=== PATIENT | male | born 1945 | race Caucasian/White ===

== ENCOUNTER → 2020-10-04 16:28 | Outpatient (CLI) | payer MEDICARE, OTHER, SELFPAY ==
[2020-10-04 15:28] VITALS: BMI 22.8
[2020-10-04 18:04] LABS: Anion Gap 6 (5-15); BUN 16 mg/dL (7-18); Calcium,Total 8.7 mg/dL (8.5-10.1); Chloride 94 mmol/L (98-107); Creatinine, Serum 0.55 mg/dL (0.70-1.30); EST Glomerular Filtration Rate 153 mL/min (>60); Est Glom Filt Rate - Afr Amer 185 mL/min (>60); Glucose 95 mg/dL (74-106); Potassium 3.7 mmol/L (3.5-5.1); Sodium Level 131 mmol/L (136-145); Thyroid Stim Hormone (TSH) 3.58 uIU/mL (0.358-3.74)
== END ==
PROVIDERS: PCP Family Medicine; Visit Provider Internal Medicine Cardiovascular Disease
DX: I11.0 Hypertensive heart disease with heart failure (principal); I50.9 Heart failure, unspecified
CPT/HCPCS: 36415; 80048; 84443

== ENCOUNTER → 2020-10-10 14:46 | Outpatient (CLI) | payer MEDICARE, OTHER, SELFPAY ==
[2020-10-04 15:28] VITALS: BMI 22.8
--- NOTE | 2020-10-10 14:49 | ECHOD_ITS ---
Reason For Study: DYSPNEA/SOB Procedure This was a 2D Doppler, Color Flow transthoracic echocardiogram. Exam performed in department. Left Ventricle Normal LV size. Left ventricular systolic function is normal. The estimated ejection fraction is 55 %. No regional wall motion abnormalities noted. Right Ventricle Normal RV size. Normal systolic function. Atria Normal left atrium. Normal right atrium. Mitral Valve Normal mitral valve. Tricuspid Valve Normal tricuspid valve. Aortic Valve Normal aortic valve. Trisinus/trileaflet aortic valve. Pulmonic Valve Normal pulmonic valve. Great Vessels Normal aortic root. The pulmonary artery is normal size. Normal inferior vena cava. Pericardium/Pleural Small pericardial effusion. There are no echocardiographic indications of cardiac tamponade. MMode/2D Measurements & Calculations LVIDd: 4.9 cm IVSd: 0.88 cm Ao root diam: 3.2 cm LVIDs: 3.7 cm LVPWd: 0.87 cm RVDd: 3.5 cm FS: 25.7 % LAV(MOD-bp): 52.3 ml LVAd ap4: 29.1 cm2 LVAd ap2: 27.5 cm2 LAV(MOD-bp) Indexed: 29.4 ml/m2 LVLd ap4: 8.7 cm LVLd ap2: 8.5 cm LAV(MOD-sp2): 48.1 ml EDV(MOD-sp4): 87.4 ml EDV(MOD-sp2): 79.2 ml LAV(MOD-sp4): 46.6 ml EDV(sp4-el): 82.7 ml EDV(sp2-el): 75.5 ml LVAs ap4: 16.6 cm2 LVAs ap2: 15.7 cm2 LVLs ap4: 7.2 cm LVLs ap2: 7.4 cm ESV(MOD-sp4): 33.4 ml ESV(MOD-sp2): 31.6 ml ESV(sp4-el): 32.6 ml ESV(sp2-el): 28.3 ml EF(MOD-sp4): 61.8 % EF(MOD-sp2): 60.1 % EF(sp4-el): 60.6 % SV(MOD-sp4): 54.0 ml SV(MOD-sp2): 47.6 ml SV(sp4-el): 50.1 ml LA dimension(2D): 3.5 cm LA A4 area: 18.2 cm2 RA A4 area: 14.9 cm2 Doppler Measurements & Calculations MV E max jose antonio: 66.4 cm/sec Lat Peak E' Jose Antonio: 11.4 cm/sec Med Peak E' Jose Antonio: 7.9 cm/sec MV A max jose antonio: 57.1 cm/sec E/E' lat: 5.8 E/E' med: 8.5 MV E/A: 1.2 Ao V2 max: 123.2 cm/sec AI max jose antonio: 366.5 cm/sec LV V1 max: 104.1 cm/sec Ao max P.1 mmHg AI max P.7 mmHg LV V1 max P.3 mmHg AI dec slope: 126.4 cm/sec2 AI P1/2t: 849.1 msec PA V2 max: 114.4 cm/sec TR max jose antonio: 317.1 cm/sec TR max P.2 mmHg ECHO/Echo Complete Interpretation Summary Normal LV size. Left ventricular systolic function is normal. The estimated ejection fraction is 55 %. Small pericardial effusion. Ordering Physician: Hector Argueta Referring Physician: Sage Prabhakar Performed By: Saida Gonzalez, SHAYY, RVT
== END ==
PROVIDERS: PCP Family Medicine; Referring Provider Internal Medicine Cardiovascular Disease; Visit Provider Internal Medicine Cardiovascular Disease
DX: I21.4 Non-ST elevation (NSTEMI) myocardial infarction (principal); R06.00 Dyspnea, unspecified; R06.02 Shortness of breath
CPT/HCPCS: 93306

== ENCOUNTER → 2020-12-13 12:55 | Outpatient (CLI) | payer MEDICARE, OTHER, SELFPAY ==
[2020-11-27 05:40] VITALS: BMI 21.6
--- NOTE | 2020-12-13 14:19 | PFTCOMP ---
COMPLETE PULMONARY FUNCTION TEST INTERPRETATION Brief HPI: Patient is a 75 year old male, currently under the care of myself, who presents to [facility] for complete pulmonary function tests secondary to diagnosis of dyspnea. Respiratory therapist reports good effort and reproducible results. Interpretation: Forced expiration spirometry shows a severe large airways obstructive ventilatory defect with an FEV1 of 45% predicted. There is a significant bronchodilator response in FVC and FEV1 by strict ATS criteria. Spirograms are of good quality and plateau slowly, indicating slowly emptying areas of the lungs. The respiratory flow volume loop shows decreased expiratory flow rates at all lung volumes consistent with airway obstruction. Lung volumes by body plethysmography show a decreased total lung capacity at 3.35 L, 54% predicted. FRC and RV are elevated out of proportion. Lung volume measurements are consistent with air-trapping. Diffusion capacity by carbon monoxide is decreased at 60% predicted. The airway resistance is elevated. No previous pulmonary function tests were available for review. Impression: Partially reversible severe mixed ventilatory defect with symmetric reduction diffusing capacity
== END ==
PROVIDERS: PCP Family Medicine; Referring Provider Internal Medicine Critical Care Medicine; Visit Provider Internal Medicine Critical Care Medicine
DX: R06.02 Shortness of breath (principal); I50.32 Chronic diastolic (congestive) heart failure
CPT/HCPCS: 94060; 94726; 94729

== ENCOUNTER → 2020-12-15 12:25 | Outpatient (CLI) | payer MEDICARE, OTHER, SELFPAY ==
[2020-11-27 05:40] VITALS: BMI 21.6
--- NOTE | 2020-12-15 12:50 | CT_ITS ---
STUDY: CT CHEST WITHOUT CONTRAST REASON FOR EXAM: Male, 75 years old. Post covid with hypoxia -- please include HRCT images RADIATION DOSAGE (If Supplied By Facility): CTDIvol = ( 6.85 ) mGy, DLP = ( 239.79 ) mGycm TECHNIQUE: Transaxial imaging was performed without the administration of intravenous contrast material. Multiplanar coronal and sagittal images were reformatted. Individualized dose optimization techniques were used for this CT. COMPARISON: None. FINDINGS: There is volume loss in the right hemithorax. Emphysematous changes. Diffuse increased interstitial markings in the right lung with areas of confluence as well as bullous formation and subpleural labs. Groundglass appearance in the right lower lobe. Tiny right pleural effusion. There is moderate cardiac enlargement. There are calcifications of the coronary arteries. Calcified mediastinal lymph nodes. Calcified bilateral hilar lymph nodes more prominent on the right side. Normal unenhanced pulmonary arteries. Normal aorta arch and descending thoracic aorta. There are multi-level degenerative changes of the thoracic spine. Increased kyphosis. There is no demonstrated abnormality of the visualized upper abdomen. CT/Chest without Contrast IMPRESSION: Mild loss in the right hemithorax with emphysematous changes and findings suggestive of chronic interstitial fibrosis and subpleural blebs. Electronically Signed: Dickson Banerjee MD at 14:08 EDT , Service support ,
[2020-12-15 12:53] VITALS: PULSE 68; PULSE 71; PULSE 74; PULSE 76; PULSE 77; PULSE 80; O2SAT 91; O2SAT 92; O2SAT 94; O2SAT 98
--- NOTE | 2020-12-15 13:11 | PCM.PSN.6M ---
PSN 6 Minute Walk Test 6 Minute Walk Test 6 Minute Walk Test: 6 Minute Walk Test PSN:6-Minute Walk Test Start: 12/15/20 12:53 Freq: Status: Active Protocol: RESP.6MINW Document 12/15/20 12:53 [facility]NE[facility] (Rec: 12/15/20 12:56 DONNELL [id number]) 6 Minute Walk Test Date Performed 12/15/20 Time Performed 12:30 Height 5 ft 8 in Weight: 58.967 kg Weight in Pounds 130.[address]: Otto Miranda Assistive device used: Cane Pre-test Oxygen Delivery Method Room Air Pulse Ox (%) 98 Pulse Rate (60-100 beats/min) 68 Dyspnea Nicole Scale (0-10) 0 Exertion Nicole Scale (6-20) 6 1st minute Oxygen Delivery Method Room Air Pulse Ox (%) 94 Pulse Rate (60-100 beats/min) 77 Number of Rests Taken 1 2nd minute Oxygen Delivery Method Room Air Pulse Ox (%) 92 Pulse Rate (60-100 beats/min) 71 Number of Rests Taken 1 3rd minute Oxygen Delivery Method Room Air Pulse Ox (%) 91 Pulse Rate (60-100 beats/min) 77 4th minute Oxygen Delivery Method Room Air Pulse Ox (%) 91 Pulse Rate (60-100 beats/min) 80 Number of Rests Taken 1 5th minute Oxygen Delivery Method Room Air Pulse Ox (%) 92 Pulse Rate (60-100 beats/min) 77 Number of Rests Taken 1 6th minute Oxygen Delivery Method Room Air Pulse Ox (%) 94 Pulse Rate (60-100 beats/min) 76 Post-test Oxygen Delivery Method Room Air Pulse Ox (%) 94 Pulse Rate (60-100 beats/min) 74 Dyspnea Nicole Scale (0-10) 3 Exertion Nicole Scale (6-20) 14 Full Laps Walked 2 Partial Lap, Number of Tiles Walked 10 Total Distance Walked (ft) 128 Interpretation Interpretation: The patient was noted to have a baseline saturation of 98%, but did desaturate as low as 91% with exertion. In total, the patient was able to travel only 128 feet over the course of 6 minutes with the assistance of a cane and for breaks. Patient was noted to have poor peripheral circulation by the respiratory therapist. These findings are consistent with a respiratory limitation exercise tolerance. Recommendations Recommendations: No supplemental oxygen is indicated at this time. However, patient will need to be followed closely given level of desaturation.
== END ==
PROVIDERS: PCP Family Medicine; Referring Provider Internal Medicine Critical Care Medicine; Visit Provider Internal Medicine Critical Care Medicine
DX: J84.10 Pulmonary fibrosis, unspecified (principal); R06.02 Shortness of breath; I50.32 Chronic diastolic (congestive) heart failure
CPT/HCPCS: 71250; 94618

== ENCOUNTER 2021-06-21 09:21 | Outpatient (CLI) | payer MEDICARE, OTHER, SELFPAY ==
--- NOTE | 2021-06-22 10:01 | PFT ---
INTRODUCTION: The patient is a 76-year-old male that presents for pulmonary function studies secondary to a diagnosis of pulmonary fibrosis. Respiratory therapy reported good patient effort. Bronchodilators were used during testing. INTERPRETATION: Forced expiration spirometry demonstrates the presence of a severe large airways obstructive ventilatory defect. There was no significant response to aerosolized bronchodilators. Spirograms are of fair quality and plateau gradually indicating slow emptying of the lungs. Body plethysmography was performed and revealed a decreased TLC to 2.63 L, 43% of predicted, indicative of a severe restrictive ventilatory impairment. The remainder of the lung volumes are symmetrically reduced. Diffusing capacity by single breath CO was reduced to 61% of predicted. IMPRESSION: Irreversible severe mixed ventilatory defect with mild reduction in diffusing capacity.
== END 2021-06-21 23:59 | disposition home or self-care (01) ==
PROVIDERS: PCP Family Medicine; Referring Provider Internal Medicine Critical Care Medicine; Visit Provider Internal Medicine Critical Care Medicine
DX: J84.10 Pulmonary fibrosis, unspecified (principal); J45.909 Unspecified asthma, uncomplicated
CPT/HCPCS: 94060; 94726; 94729

== ENCOUNTER 2021-07-23 12:24 | Outpatient (CLI) | payer MEDICARE, OTHER, SELFPAY ==
[2021-07-23 13:46] LABS: ALB/GLOB Ratio 0.6 RATIO (0.9-2.4); AST(SGOT) 23 U/L (15-37); Alanine Aminotransfer ALT/SGPT 19 U/L (16-61); Albumin, Serum 3.6 g/dL (3.2-5.0); Alkaline Phosphatase 88 U/L (45-117); Anion Gap 5 (5-15); BUN 33 mg/dL (7-18); BUN/Creat Ratio 34.4 RATIO (10-20); Calcium,Total 8.7 mg/dL (8.5-10.1); Chloride 99 mmol/L (98-107); Creatinine, Serum 0.96 mg/dL (0.70-1.30); EST Glomerular Filtration Rate 81 mL/min (>60); Est Glom Filt Rate - Afr Amer 98 mL/min (>60); Globulin 5.6 g/dL (2.2-4.2); Glucose 100 mg/dL (74-106); Potassium 4.2 mmol/L (3.5-5.1); Protein, Total 9.2 g/dL (6.4-8.2); Sodium Level 135 mmol/L (136-145)
== END 2021-07-23 23:59 | disposition home or self-care (01) ==
LOC: LAB 12:25
PROVIDERS: PCP Family Medicine; Referring Provider Nurse Practitioner Family; Visit Provider Nurse Practitioner Family
DX: I11.0 Hypertensive heart disease with heart failure (principal); I50.32 Chronic diastolic (congestive) heart failure
CPT/HCPCS: 36415; 80053

== ENCOUNTER → 2022-04-10 | Outpatient (CLI) | payer MEDICARE, OTHER, SELFPAY ==
[2022-04-10 12:54] VITALS: PULSE 65; PULSE 75; PULSE 83; PULSE 85; O2SAT 2; O2SAT 88; O2SAT 91; O2SAT 92; O2SAT 93; O2SAT 97
--- NOTE | 2022-04-10 12:59 | CPS ---
Pulse ox at rest on room air 89%. Pt placed at 1 lpm. Saturation to 93%. Walk started and pt remained on 1 lpm until the 2 minute time bettina. Pt was then increased to 2 during rest period. Pt started walk again and needed to stop at the 4 minute bettina due to SOB. Pt was at 2 lpm saturation was 91%. Pt then began to drop while sitting in chair. Pt was placed to 3 lpm where he was able to maintain his saturation at rest. Pt did not resume the walk. Pt wears 3 lpm at home currently.
--- NOTE | 2022-04-11 08:12 | PCM.PSN.6M ---
PSN 6 Minute Walk Test 6 Minute Walk Test 6 Minute Walk Test: 6 Minute Walk Test PSN:6-Minute Walk Test Start: 04/10/22 12:54 Freq: Status: Active Protocol: RESP.6MINW Document 04/10/22 12:54 [facility] (Rec: 04/10/22 13:05 [facility] [id number]) 6 Minute Walk Test Date Performed 04/10/22 Time Performed 12:30 Height 5 ft 9 in Weight: 150 lb Weight in Pounds 150.[address]: Otto Miranda Assistive device used: None Pre-test Oxygen Flow Rate (L/min) (L/min) 1 Oxygen Delivery Method Nasal Cannula Pulse Ox (%) 93 Pulse Rate (60-100 beats/min) 75 Dyspnea Nicole Scale (0-10) 0.5 Exertion Nicole Scale (6-20) 6 1st minute Oxygen Flow Rate (L/min) (L/min) 1 Oxygen Delivery Method Nasal Cannula Pulse Ox (%) 91 Pulse Rate (60-100 beats/min) 85 2nd minute Oxygen Flow Rate (L/min) (L/min) 1 Oxygen Delivery Method Nasal Cannula Pulse Ox (%) 88 Pulse Rate (60-100 beats/min) 83 Dyspnea Nicole Scale (0-10) 2 Number of Rests Taken 1 Reported Symptoms Increased Work of Breathing 3rd minute Oxygen Flow Rate (L/min) (L/min) 2 Oxygen Delivery Method Nasal Cannula Pulse Ox (%) 93 Pulse Rate (60-100 beats/min) 83 Dyspnea Nicole Scale (0-10) 2 Reported Symptoms Increased Work of Breathing 4th minute Oxygen Flow Rate (L/min) (L/min) 87 Oxygen Delivery Method Nasal Cannula Pulse Ox (%) 2 Dyspnea Nicole Scale (0-10) 1 Number of Rests Taken 1 Reported Symptoms Increased Work of Breathing 5th minute Oxygen Flow Rate (L/min) (L/min) 3 Oxygen Delivery Method Nasal Cannula Pulse Ox (%) 92 Dyspnea Nicole Scale (0-10) 1 Number of Rests Taken 1 Reported Symptoms Increased Work of Breathing 6th minute Oxygen Flow Rate (L/min) (L/min) 3 Oxygen Delivery Method Nasal Cannula Pulse Ox (%) 97 Post-test Oxygen Flow Rate (L/min) (L/min) 3 Oxygen Delivery Method Nasal Cannula Pulse Ox (%) 97 Pulse Rate (60-100 beats/min) 65 Dyspnea Nicole Scale (0-10) 0.5 Full Laps Walked 1 Partial Lap, Number of Tiles Walked 20 Total Distance Walked (ft) 79 04/10/22 12:59 Cardiopulmonary Services by Saira Gomes Pulse ox at rest on room air 89%. Pt placed at 1 lpm. Saturation to 93%. Walk started and pt remained on 1 lpm until the 2 minute time bettina. Pt was then increased to 2 during rest period. Pt started walk again and needed to stop at the 4 minute bettina due to SOB. Pt was at 2 lpm saturation was 91%. Pt then began to drop while sitting in chair. Pt was placed to 3 lpm where he was able to maintain his saturation at rest. Pt did not resume the walk. Pt wears 3 lpm at home currently. Initialized on 04/10/22 12:59 - END OF NOTE Interpretation Interpretation: The patient ambulated 79 feet during the course of this test. According to documentation, the patient ambulated for the first 3 minutes of the test and rested for the subsequent 3. Pretesting oxygen saturation was noted to be 89% on room air. 1 L/min of supplemental oxygen was applied with saturations improving to 93%. With ambulation, the michi oxygen saturation was 88%. The supplemental oxygen flow rate was increased to 2 L/min. However, at minute 4 of testing, the patient again desaturated to 87%, requiring an escalation of flow rate to 3 L/min. Recommendations Recommendations: 3 L/min of supplemental oxygen should be utilized, both at rest and with exertion.
== END | disposition home or self-care (01) ==
LOC: PSN 12:02
PROVIDERS: PCP Family Medicine; Referring Provider Internal Medicine Critical Care Medicine; Visit Provider Internal Medicine Critical Care Medicine
DX: J84.10 Pulmonary fibrosis, unspecified (principal)
CPT/HCPCS: 94618

== ENCOUNTER → 2022-04-11 | Outpatient (CLI) | payer MEDICARE, OTHER, SELFPAY ==
--- NOTE | 2022-04-11 12:54 | PFT ---
INTRODUCTION: The patient is a 77-year-old male that presents for pulmonary function studies secondary to a diagnosis of shortness of breath. Respiratory therapy reported good patient effort. Bronchodilators were used during testing. INTERPRETATION: Forced expiration spirometry demonstrates the presence of a severe large airways obstructive ventilatory defect. There was no significant response to aerosolized bronchodilators. Spirograms are of good quality but do not plateau indicating slow emptying of the lungs. Body plethysmography was performed and demonstrated a decreased TLC to 3.7 L, 63% of predicted, indicative of a moderate restrictive ventilatory impairment. Diffusing capacity by single breath CO is reduced at 49% of predicted. IMPRESSION: Irreversible severe mixed ventilatory defect with symmetric reduction in diffusing capacity.
== END | disposition home or self-care (01) ==
LOC: PSN 08:57
PROVIDERS: PCP Family Medicine; Visit Provider Internal Medicine Critical Care Medicine
DX: J84.10 Pulmonary fibrosis, unspecified (principal)
CPT/HCPCS: 94060; 94726; 94729

== ENCOUNTER → 2022-07-22 | Outpatient (CLI) | payer MEDICARE, OTHER, SELFPAY ==
--- NOTE | 2022-07-22 08:59 | EKG12_ITS ---
Test Reason : PREOP Blood Pressure : / mmHG Vent. Rate : 062 BPM Atrial Rate : 062 BPM P-R Int : 188 ms QRS Dur : 096 ms QT Int : 410 ms P-R-T Axes : 048 021 042 degrees QTc Int : 416 ms Normal sinus rhythm Normal ECG Confirmed by ZEN MENENDEZ, SUDEEP ([id number]), news video editor YIFAN ZHENG ([id number]) on 07/23/2022 8:59:35 AM Referred By: Sage Prabhakar Confirmed By:SUDEEP ZALDIVAR MD
[2022-07-22 10:59] LABS: Albumin, Serum 3.3 g/dL (3.2-5.0); BUN 35 mg/dL (7-18); BUN/Creat Ratio 31.8 RATIO (10-20); EST Glomerular Filtration Rate 69 mL/min (>60); Est Glom Filt Rate - Afr Amer 83 mL/min (>60); Glucose 107 mg/dL (74-106); Protein, Total 8.6 g/dL (6.4-8.2)
[2022-07-22 11:00] LABS: ALB/GLOB Ratio 0.6 RATIO (0.9-2.4); AST(SGOT) 22 U/L (15-37); Alanine Aminotransfer ALT/SGPT 16 U/L (16-61); Alkaline Phosphatase 81 U/L (45-117); Anion Gap 3 (5-15); Calcium,Total 8.9 mg/dL (8.5-10.1); Chloride 100 mmol/L (98-107); Globulin 5.3 g/dL (2.2-4.2); Potassium 3.6 mmol/L (3.5-5.1); Sodium Level 135 mmol/L (136-145)
== END | disposition home or self-care (01) ==
PROVIDERS: PCP Family Medicine; Referring Provider Family Medicine; Visit Provider Family Medicine
DX: Z01.818 Encounter for other preprocedural examination (principal)
CPT/HCPCS: 36415; 80053; 93005

== ENCOUNTER → 2023-11-10 | Outpatient (CLI) | payer MEDICARE, OTHER, SELFPAY | END | disposition home or self-care (01) | LOC: PSN 09:02 | PROVIDERS: PCP Family Medicine; Referring Provider Internal Medicine Critical Care Medicine; Visit Provider Internal Medicine Critical Care Medicine | DX: J84.10 Pulmonary fibrosis, unspecified (principal) | CPT/HCPCS: 94060; 94726; 94729 ==